=== PATIENT | male | born 1960 | race African-American/Black ===

== ENCOUNTER 2022-08-22 19:54 | Emergency (ER) | payer SELFPAY ==
--- NOTE | ~2022-08-22 | XR_ITS ---
EXAMINATION: XR chest 2V DATE: 08/22/2022 20:11 INDICATION: Chest pain. Shortness of breath. TECHNIQUE: Frontal and lateral views of the chest were obtained. COMPARISON: None. FINDINGS: There is no pneumonia, pleural effusion, or pneumothorax. The heart size is normal. IMPRESSION: 1. No acute cardiopulmonary disease. Reviewed, dictated and finalized at location E.
[2022-08-22 19:49] VITALS: BP 122/83; PULSE 109; RESP 20; TEMP 36.6; O2SAT 97
--- NOTE | 2022-08-22 19:58 | ECG_ITS ---
Measurements Intervals [place] Rate: 98 P: 30 CA: 156 QRS: 20 QRSD: 103 T: -10 QT: 356 QTc: 455 Interpretive Statements SINUS RHYTHM POSSIBLE LEFT ATRIAL ENLARGEMENT BORDERLINE ST-T WAVE ABNORMALITY- ANTEROLAT/INF LEADS BORDERLINE ECG NO PREVIOUS ECG AVAILABLE FOR COMPARISON Electronically Signed On 08-22-2022 20:19:23 CDT by Shaun Rider D.O.
[2022-08-22] MEDS: SODIUM CHLORIDE 0.9% IV 2,000 ML 999 ML IV CONT (20:00)
[2022-08-22 20:10] LABS: Basophils Percent Auto 0.4 % (0.2-1.2); Eosinophils Absolute Auto 0.1 K/mm3 (0-0.3); Eosinophils Percent Auto 1.4 % (0-4.4); Hematocrit 45.1 % (42.0-52.0); Immature Granulocyte Absolute 0.02 K/mm3 (0.00-0.031); Immature Granulocyte Percent A 0.3 % (0-0.5); Lymphocytes Absolute Auto 3.12 K/mm3 (0.9-3.2); Mean Corpuscular HGB Conc 33.3 g/dl (32-36); Mean Corpuscular Volume 87.1 fl (80-100); Mean Platelet Volume 9.4 fl (7.4-10.4); Monocytes Percent Auto 12.8 % (2.6-8.5); Neutrophils Absolute Auto 3.7 K/mm3 (1.3-6.7); Neutrophils Percent Auto 46.1 % (45.5-73.1); Platelet Count Result 222 k/mm3 (150-375); Red Blood Count 5.18 M/mm3 (4.6-6.20); Red Cell Distribution Width 14.6 % (11.5-14.5)
[2022-08-22 20:19] LABS: INR 1.1; Prothrombin Time 14.5 Seconds (11.1-14.7)
[2022-08-22 20:20] LABS: Magnesium 1.7 mg/dL (1.6-2.3); Phosphorus 4.4 mg/dL (2.5-4.5)
[2022-08-22 20:20] LABS: Partial Thromboplastin Time 34.2 SECONDS (22.3-36.8)
[2022-08-22 20:21] LABS: Alanine Aminotransferase 23 U/L (6-50); Albumin Level 3.8 g/dL (3.5-5.1); Alkaline Phosphatase 121 U/L (38-126); Anion Gap 9 mmol/L (8-16); Aspartate Amino Transferase 30 U/L (17-59); Bilirubin,Total 0.4 mg/dL (0.2-1.3); Blood Urea Nitrogen 24 mg/dL (9-20); Calcium 8.2 mg/dL (8.4-10.2); Carbon Dioxide 26 mmol/L (22-30); Chloride 97 mmol/L (98-107); Estimated Glomerular Filt Rate 38; Glucose 121 mg/dL (65-110); Lipase 56 U/L (23-300); Potassium 3.2 mmol/L (3.4-5.0); Sodium 132 mmol/L (137-145)
[2022-08-22 20:31] VITALS: BP 141/81; PULSE 96; RESP 18; O2SAT 98
[2022-08-22 21:34] VITALS: BP 124/86; PULSE 94; RESP 18; O2SAT 98
--- NOTE | 2022-08-25 20:50 | ED.GENADULT ---
HPI - General Adult General Chief complaint: Arrhythmia/Palpitations Stated complaint: svt Time Seen by Provider: 08/22/22 20:11 History of Present Illness HPI narrative: A 62-year-old male presenting ED with chief complaint of SVT. Patient has had multiple episodes of SVT over the last several months. He has required cardioversion several times. He went into SVT today and called EMS. He received 6, 12 adenosine no resolved. He was then cardioverted with returned normal rhythm. at this time the patient is resting comfortably. He has follow-up with his insurance processor in [place]. Related Data Allergies Allergy/AdvReac Type Severity Reaction Status Date / Time No Known Allergies Allergy Verified 08/22/22 20:31 Exam Narrative: APPEARANCE: No apparent distress. Head: atraumatic. EYES: EOMI, NOSE: Atraumatic NECK: Trachea midline RESPIRATORY: No increased rate of breathing , clear to auscultation CARDIOVASCULAR: RRR, no peripheral edema ABDOMINAL: Non-distended MUSCULOSKELETAl: No obvious deformities NEURO: Alert. Moving 4/4 extremities SKIN:: Warm, dry. Normal color PSYCHIATRIC: Normal affect Course Vital Signs Vital signs: Vital Signs Temperature 97.9 F 08/22/22 19:49 Pulse Rate 109 H 08/22/22 19:49 Respiratory Rate 20 08/22/22 19:49 Blood Pressure 122/83 08/22/22 19:49 Pulse Oximetry 97 08/22/22 19:49 Oxygen Delivery Nasal Cannula 08/22/22 19:49 Oxygen Flow Rate 2 08/22/22 19:49 Temperature 97.9 F 08/22/22 19:49 Pulse Rate 94 08/22/22 21:34 Respiratory Rate 18 08/22/22 21:34 Blood Pressure 124/86 08/22/22 21:34 Pulse Oximetry 98 08/22/22 21:34 Oxygen Delivery Nasal Cannula 08/22/22 19:49 Oxygen Flow Rate 2 08/22/22 19:49 Medical Decision Making [facility] Narrative Medical decision making narrative: -Presentation: 62-year-old male history of SVT presenting in SVT. He was cardioverted by EMS and is now in a normal sinus rhythm. -DDX includes but is not limited to: SVT, dehydration -Co-morbidities complicating care: history of as PT, hypertension -Social determinants of health: patient is a truck driver rubbish collector from [place] -External Chart Review: none -Hx from independent Sources: EMS report -Discussion of Management/Consultants: none -Independent interpretation of studies: chest x-ray was unremarkable. Independent EKG interpretation: Rhythm [sinus], Rate [98], [place] -[normal], [place] -[normal], QRS [narrow], QTC [normal], T waves -[negative for concerning inversions], ST Segments - [Negative for concerning elevations] Final interpretations: normal sinus rhythm with nonspecific ST changes Dx tests considered but not ordered: none -Procedures: none -Interventions: 2 L normal saline -Shared decision making / Disposition: Patient stated that he had to leave and left the emergency department. He said he will follow-up with his insurance processor in [place]. -RX Vital Signs Vital Signs: Vital Signs Temperature 97.9 F 08/22/22 19:49 Pulse Rate 109 H 08/22/22 19:49 Respiratory Rate 20 08/22/22 19:49 Blood Pressure 122/83 08/22/22 19:49 Pulse Oximetry 97 08/22/22 19:49 Oxygen Delivery Nasal Cannula 08/22/22 19:49 Oxygen Flow Rate 2 08/22/22 19:49 Temperature 97.9 F 08/22/22 19:49 Pulse Rate 94 08/22/22 21:34 Respiratory Rate 18 08/22/22 21:34 Blood Pressure 124/86 08/22/22 21:34 Pulse Oximetry 98 08/22/22 21:34 Oxygen Delivery Nasal Cannula 08/22/22 19:49 Oxygen Flow Rate 2 08/22/22 19:49 Lab Data 08/22/22 20:00 08/22/22 20:00 Labs: Lab Results 08/22/22 08/22/22 Range/Units 20:00 20:03 WBC 8.0 (4.5-10.0) K/mm3 RBC 5.18 (4.6-6.20) M/mm3 Hgb 15.0 (14.0-18.0) g/dL Hct 45.1 (42.0-52.0) % MCV 87.1 (80-100) fl MCH 29.0 (26-34) pg MCHC 33.3 (32-36) g/dl RDW 14.6 H (11.5-14.5) % Plt Count 222 (150-375) k/mm3 MPV 9.4 (7.4
== END 2022-08-22 21:35 | disposition home or self-care (01) ==
LOC: ANHED 21:11
PROVIDERS: Emergency Provider Emergency Medicine
DX: I47.1 Supraventricular tachycardia (principal); R94.31 Abnormal electrocardiogram [ECG] [EKG]
CPT/HCPCS: 36415; 71046; 80053; 83690; 83735; 84100; 85025; 85610; 85730; 93005; 96360; 96361; 99284; J7030